=== PATIENT | male | born 1950 | race Caucasian/White ===

== ENCOUNTER 2020-09-10 01:20 | Emergency (ER) | payer MEDICARE, OTHER ==
[~2020-09-10 01:20] MED LIST: AMIODARONE HCL200 MG PO; DOXYCYCLINE MO100 MG PO; HCTZ25 MG PO; MIRALAX17 G1 PO; NORCO 7.5-3251 EACH PO; NORVASC5 MG PO; PRILOSEC20 MG PO; PRINIVIL20 MG PO; PROPAFENONE HC150 MG PO; SYNTHROID100 MCG PO; TESSALON PERLE100 MG PO; TOPROL XL 25MG25 MG PO; TYLENOL ARTHRI650 MG PO; VIBRAMYCIN100 M1 PO; XARELTO10 MG PO
[2020-09-10] MEDS ORDERED: ATARAX25 MG PO (02:06)
[2020-09-10] MEDS ORDERED: PREDNISONE 20MG20 MG PO (02:06)
== END 2020-09-10 02:44 | disposition home or self-care (01) ==
LOC: FER 01:20
DX: L50.1 Idiopathic urticaria (principal); I48.91 Unspecified atrial fibrillation; I12.9 Hypertensive chronic kidney disease with stage 1 through stage 4 chronic kidney disease, or unspecified chronic kidney disease; N18.4 Chronic kidney disease, stage 4 (severe); Z88.2 Allergy status to sulfonamides
CPT/HCPCS: 99282; J7512